=== PATIENT | male | born 1960 | race Caucasian/White ===

== ENCOUNTER → 2020-07-22 | Day surgery (SDC) | payer MEDICARE, OTHER ==
[~2020-07-22] MED LIST: AMLODIPINE BESYL5 MG PO; CRESTOR20 MG PO; DICLOFENAC SODIUM TOP; ECOTRIN81 MG PO; FLOMAX0.4 MG PO; FLUTICASONE SPRAY INH; IBUPROFEN800 MG PO; LEVOCETIRIZINE D5 MG PO; LISINOPRIL-HCT1 EAC2 PO; MULTI-VITAMIN1 EACH PO; NORCO 5-325 TA1 EACH PO; OMEPRAZOLE40 MG PO; PROTONIX 40 MG40 M1 PO; TADALAFIL10 MG PO; VIAGRA100 MG PO; VITAMIN D250000 UNIT PO
== END | disposition home or self-care (01) ==
LOC: OR 07:00
PROVIDERS: Surgery
PROC: 0DBN8ZX Excision of Sigmoid Colon, Via Natural or Artificial Opening Endoscopic, Diagnostic (ICD-10-PCS; principal; 2020-07-22 09:25)
DX: Z12.11 Encounter for screening for malignant neoplasm of colon (principal); K63.5 Polyp of colon; K57.30 Diverticulosis of large intestine without perforation or abscess without bleeding; K21.9 Gastro-esophageal reflux disease without esophagitis; E78.5 Hyperlipidemia, unspecified; I10 Essential (primary) hypertension; N40.0 Benign prostatic hyperplasia without lower urinary tract symptoms; G43.109 Migraine with aura, not intractable, without status migrainosus; M15.0 Primary generalized (osteo)arthritis; E55.9 Vitamin D deficiency, unspecified; G47.30 Sleep apnea, unspecified; E66.01 Morbid (severe) obesity due to excess calories; Z68.37 Body mass index [BMI] 37.0-37.9, adult; Z88.8 Allergy status to other drugs, medicaments and biological substances; Z79.82 Long term (current) use of aspirin; Z79.899 Other long term (current) drug therapy; Z87.891 Personal history of nicotine dependence; Z20.822 Contact with and (suspected) exposure to COVID-19
CPT/HCPCS: J2704; J7040; J7120

== ENCOUNTER → 2021-09-07 | Outpatient (CLI) | payer MEDICARE | LOC: ECHO 10:30 | DX: E78.5 Hyperlipidemia, unspecified (principal); R73.01 Impaired fasting glucose; G47.33 Obstructive sleep apnea (adult) (pediatric); I27.20 Pulmonary hypertension, unspecified; I08.1 Rheumatic disorders of both mitral and tricuspid valves; I11.9 Hypertensive heart disease without heart failure | CPT/HCPCS: ECHO; 93306 ==